=== PATIENT | female | born 1960 | race Caucasian/White ===

== ENCOUNTER → 2016-11-28 | Outpatient (CLI) | payer OTHER ==
[~2016-11-28] MED LIST: BACTRIM DS TABL1 TA1 PO; CATAPRES0.1 MG PO; HYCODAN60 ML 5MG/ PO; MEDROL4 MG/DOSE- PO; PROVENTIL17 GM IH; SYNTHROID75 MCG PO; VISTARIL PO; ZIAC 10-6.25 M1 EACH PO; ZIAC PO
--- NOTE | ~2016-11-28 | MR18 ---
[facility] A Service of [facility] RADIOLOGY TEXT RESULTS PATIENT: MONTY ALDANA LOCATION: [facility] : 56 UNIT #: [id number] AGE: [address]: Phoebe Burr MD SEX: F ORDER DR: [id number] [address] [id number] O MR#: [id number] Acc #: [id number] NAME: MONTY ALDANA : 1960 SEX: F STUDY DATE/TIME: 11/28/2016 13:12 UNIT: [facility] ROOM: STUDY DESCRIPTION: MR Brain Wo Contrast Attending Physician: Phoebe Burr M.D. Referring Physician: Phoebe Burr M.D. Ordering Physician: Phoebe Burr M.D. Primary Care Physician: Phoebe Burr M.D. MRI CENTER REPORT This report is preliminary unless electronic signature is present. EXAM Brain MRI HISTORY Headache with bilateral otalgia. The headaches are occipital in location and present for the past 7 months. TECHNIQUE Multiplanar imaging brain was performed with short and long TR. FINDINGS On diffusion-weighted imaging, there is no evidence of abnormal restricted diffusion. The routine brain images show normal ventricular size. No white matter signal abnormalities are seen in the periventricular region. Extraaxial structures are unremarkable. Signal in the temporal region is normal. IMPRESSION Negative brain MRI. Dictated by... Andres Bates M.D. THIS IS AN ELECTRONICALLY VERIFIED REPORT Andres Bates M.D. at 11/29/2016 5:04 PM RLF/pcl TD: 11/29/2016 16:53 JOB #: [id number] [facility] A Service [facility] RADIOLOGY TEXT RESULTS PATIENT: MONTY ALDANA LOCATION: [facility] : 56 UNIT #: [id number] AGE: [address]: Phoebe Burr MD SEX: F ORDER DR: MRI CENTER REPORT Page 1 of 1
== END | disposition home or self-care (01) ==
LOC: SMRI 12:21
DX: R51 Headache (principal); H92.03 Otalgia, bilateral
CPT/HCPCS: 70551